=== PATIENT | female | born 1960 | race Caucasian/White ===

== ENCOUNTER → 2025-03-22 12:40 | Outpatient (REF) | payer BC, SELFPAY | LOC: RAD 12:40 | PROVIDERS: ATTENDING PHYSICIAN Student in an Organized Health Care Education/Training Program | DX: R09.89 Other specified symptoms and signs involving the circulatory and respiratory systems (principal); H91.90 Unspecified hearing loss, unspecified ear; L71.9 Rosacea, unspecified; J44.9 Chronic obstructive pulmonary disease, unspecified; F17.200 Nicotine dependence, unspecified, uncomplicated; I10 Essential (primary) hypertension; M65.30 Trigger finger, unspecified finger | CPT/HCPCS: 73130; 93880 ==